=== PATIENT | female | born 2000 | race Caucasian/White ===

== ENCOUNTER 2022-08-19 14:51 | Emergency (ER) | payer OTHER, SELFPAY ==
--- NOTE | ~2022-08-19 | US_ITS ---
EXAMINATION: US PELVIS COMPLETE CLINICAL INFORMATION: Right lower quadrant pain COMPARISON: CT abdomen pelvis 08/19/2022 TECHNIQUE: Transabdominal and transvaginal imaging was performed. Color and spectral Doppler was also obtained. FINDINGS: The uterus is of normal size and echogenicity measuring 6.7 x 3.2 x 3.9 cm. A regular homogeneous endometrium is identified measuring 0.7 cm. No uterine mass. Ovarian cyst present in the cervix. Both ovaries are of normal echogenicity with vascular flow present. The right measures 4.9 x 2.3 x 2.4 cm for a volume of 14.2 mL. The left measures 4.5 x 1.9 x 2.6 cm for a volume of 11.1 mL. Multiple physiologic follicles are noted. There is no pelvic free fluid. US/US pelvic and transvaginal IMPRESSION: No acute findings to explain symptoms of pelvic pain. Ovaries are symmetrically mildly enlarged with multiple follicles, which could be seen in the setting of polycystic ovarian syndrome if clinical history is appropriate.
--- NOTE | ~2022-08-19 | XR_ITS ---
EXAMINATION: XR CHEST CLINICAL INFORMATION: Chest pain COMPARISON: None TECHNIQUE: Frontal view of the chest was obtained. FINDINGS: No significant abnormality is noted involving the heart, lungs, mediastinum, bony thorax or soft tissues. XR/XR chest 1V IMPRESSION: Unremarkable examination.
--- NOTE | ~2022-08-19 | CT_ITS ---
EXAMINATION: CT ABDOMEN AND PELVIS WITH CONTRAST CLINICAL INFORMATION: Flank pain COMPARISON: None TECHNIQUE: Multidetector volumetric images were obtained from the superior aspect of the liver through the pubic symphysis following administration 85 mL of Omnipaque 350 intravenous contrast. Sagittal and coronal reformatted images were obtained on the technologist's workstation. Oral contrast: No This CT examination was performed using dose optimization techniques as appropriate, variously including the following: *Automated exposure control *Adjustment of mA and/or kV according to patient size (this includes techniques or standardized protocols for targeted exams where dose is matched to indication/reason for exam; i.e. extremities or head) *Use of iterative reconstruction technique DLP: 565 mGy-cm FINDINGS: LUNG BASES: The visualized lung bases are unremarkable. LIVER, GALLBLADDER, AND BILIARY TREE: The liver is normal in size, shape, and attenuation. No focal hepatic lesion or biliary ductal dilatation is present. The gallbladder is unremarkable with no evidence of radiopaque gallstones, gallbladder wall thickening, or obvious pericholecystic inflammatory changes. PANCREAS: Unremarkable. SPLEEN: Unremarkable. ADRENAL GLANDS: Unremarkable. KIDNEYS AND URETERS: The kidneys are normal in size, shape, and attenuation. No hydronephrosis, hydroureter, or calculi seen. No perinephric stranding. BLADDER: Unremarkable. GASTROINTESTINAL TRACT: The small and large bowel are unremarkable. No inflammatory changes. ABDOMINAL WALL: No significant hernia is appreciated. LYMPH NODES: Reactive appearing lymph nodes within the mesentery. VASCULAR: Unremarkable. PELVIC VISCERA: Unremarkable. OSSEOUS STRUCTURES: Unremarkable. CT/CT abdomen pelvis w IV con IMPRESSION: No stones or obstructive uropathy. Changes of mild nonspecific lymphadenitis within the mesentery. Fleischner guidelines were followed.
--- NOTE | ~2022-08-19 | US_ITS ---
EXAMINATION: US PELVIS COMPLETE CLINICAL INFORMATION: Right lower quadrant pain COMPARISON: CT abdomen pelvis 08/19/2022 TECHNIQUE: Transabdominal and transvaginal imaging was performed. Color and spectral Doppler was also obtained. FINDINGS: The uterus is of normal size and echogenicity measuring 6.7 x 3.2 x 3.9 cm. A regular homogeneous endometrium is identified measuring 0.7 cm. No uterine mass. Ovarian cyst present in the cervix. Both ovaries are of normal echogenicity with vascular flow present. The right measures 4.9 x 2.3 x 2.4 cm for a volume of 14.2 mL. The left measures 4.5 x 1.9 x 2.6 cm for a volume of 11.1 mL. Multiple physiologic follicles are noted. There is no pelvic free fluid. US/US pelvic ovarian doppler IMPRESSION: No acute findings to explain symptoms of pelvic pain. Ovaries are symmetrically mildly enlarged with multiple follicles, which could be seen in the setting of polycystic ovarian syndrome if clinical history is appropriate.
[2022-08-19 16:18] VITALS: BP 133/77; PULSE 56; RESP 16; TEMP 36.8; O2SAT 98; BMI 30.9
[2022-08-19 16:53] LABS: MANUAL DIFF FLAG NO
[2022-08-19 17:01] LABS: Appearance Urine Clear; Basophils Absolute Auto 0.1 X10*3/uL (0.0-0.2); Basophils Percent Auto 0.7 % (0-2); Color Urine Yellow; Eosinophils Absolute Auto 0.5 X10*3/uL (0.0-0.4); Eosinophils Percent Auto 3.8 % (0-4); Glucose Urine UA Negative (Negative); Hematocrit 42.2 % (37.0-47.0); Hemoglobin 13.6 g/dl (12.0-16.0); Imm Gran Abs Auto 0.07 X10*3/uL (0.00-0.03); Imm Gran Pct Auto 0.6 % (0.0-0.4); Leukocyte Esterase Urine Negative (Negative); Lymphocytes Percent Auto 31.5 % (20-40); Mean Corpuscular HGB Conc 32.2 g/dl (31.0-35.0); Mean Corpuscular Hemoglobin 27.6 pg (27.0-33.0); Mean Corpuscular Volume 85.8 fL (80.0-98.0); Mean Platelet Volume 9.8 fL (9.4-12.3); Monocytes Absolute Auto 0.9 X10*3/uL (0.1-1.2); Monocytes Percent Auto 6.8 % (2-11); Neutrophils Absolute Auto 7.2 x10*3/uL (2.0-8.3); Neutrophils Percent Auto 56.6 % (45-73); Nitrite Urine Negative (Negative); Platelet Count 370 X10*3/uL (160-400); Red Blood Count 4.92 X10*6/uL (4.20-5.50); Red Cell Distribution Width 13.4 % (11.0-16.0); Specific Gravity - Urine 1.025 (1.005-1.025); Urine Blood Negative (Negative); Urine Ketones Trace mg/dL (Negative); Urine Protein Negative (Neg-Trace); White Blood Count 12.7 X10*3/uL (4.8-10.8)
[2022-08-19 17:10] LABS: Alanine Aminotransferase 26 U/L (0-31); Albumin Level 4.6 g/dL (3.5-5.0); Anion Gap 16 (12-20); Aspartate Amino Transferase 21 U/L (5-31); Bilirubin Total 0.3 mg/dL (0.0-1.0); Blood Urea Nitrogen 11 mg/dL (9-16); Calcium 9.8 mg/dL (8.4-10.2); Carbon Dioxide 24 mmol/L (22-29); Chloride 105 mmol/L (96-108); Creatinine Clr Calc Pharmacy 117.7; Estimated Glomerular Filt Rate > 60; Glucose Random 83 mg/dL (60-115); Potassium 4.2 mmol/L (3.3-5.1); Sodium 141 mmol/L (135-145); Total Protein 7.8 g/dL (6.5-8.0)
[2022-08-19 17:11] LABS: Alkaline Phosphatase 110 U/L (39-117)
[2022-08-19 20:21] VITALS: BP 147/86; PULSE 65; RESP 18; TEMP 36.8; O2SAT 97
[2022-08-19 21:02] LABS: HCG Quantitative < 2 mIU/mL
--- NOTE | 2022-08-19 21:07 | ED_ITS ---
HPI - Female Genitourinary General Chief complaint: Urogenital-Female Stated complaint: lower abd/lower back pain Time Seen by Provider: 08/19/22 20:25 Source: patient Mode of arrival: ambulatory Limitations: no limitations History of Present Illness HPI Narrative: 22-year-old female with history of asthma presents to the emergency department with diffuse lower abdominal pain radiating to her back x 2 weeks. Patient reports the pain is constant however it is worse when she is lying on her right side. Patient was diagnosed and treated for a yeast infection & UTI 2 weeks ago. Was + for chlamydia in May. Reports no concerns for STD/STIS now no vaginal bleeding or discharge recieve full tx and it resolved. Patient continues to report frequent urination, denies odor and reprots cloudy urine. Patient reports intermittent pleuritic chest pain however contributes this to her asthma. Patient reports headaches ( feels like her typical, no vision changes, dizziness, head trauma) and reports that about a week ago she felt nauseous. Patient denies altered mental status, dizziness, vomiting, hematauria, shortness of breath, weakness, vaginal bleeding, vaginal discharge. Related Data Previous Rx's Medication Instructions Recorded cyclobenzaprine 10 mg tablet 10 mg PO BEDTIME PRN muscle spasm 08/19/22 #7 tabs docusate sodium 100 mg capsule 100 mg PO BID #20 caps 08/19/22 (Colace) polyethylene glycol 3350 17 17 g PO BID PRN constipation #238 08/19/22 gram/dose oral powder (Miralax) grams prednisone 20 mg tablet 20 mg PO DAILY 5 days #5 tabs 08/19/22 sennosides 8.6 mg tablet (senna) 8.6 mg PO BEDTIME #14 tabs 08/19/22 Allergies Allergy/AdvReac Type Severity Reaction Status Date / Time No Known Allergies Allergy Verified 08/19/22 16:18 Review of Systems Review of Systems: Constitutional : No Weight loss, No Fever, No Chills, + Fatigue, + Malaise ENT/Mouth : No sore throat, No Rhinorrhea Eyes: No Eye Pain, No Swelling, No Redness Cardiovascular : + Chest Pain, No SOB, No Dyspnea on Exertion, No Orthopnea, No Edema, No Palpitations Respiratory : No Cough, No Sputum, No Wheezing Gastrointestinal : No Nausea, No Vomiting, No Diarrhea, No Constipation, + abdominal Pain, No Hematochezia, No Melena Genitourinary : No Dysuria, No Urinary Frequency, No Hematuria, Musculoskeletal : No joint pain, No Myalgias, No Joint Swelling Skin : No Skin Lesions, No rash Neuro : No Weakness, No Numbness, No Dizziness, No Headache Psych : No Anxiety/Panic, No Depression All other systems reviewed and are negative Yes all other systems are reviewed and are negative [facility] Past Medical History Attestation statement: The following information was validated with the patient. Source: old records reviewed and nursing notes reviewed Social History Social History Advance Directives: No Advance Directives Information Provided: No Physical Exam Vital Signs: Vital Signs: Last Vital Signs Temp 98.3 F 08/19/22 20:21 Pulse 65 08/19/22 20:21 Resp 18 08/19/22 20:21 BP 147/86 H 08/19/22 20:21 Pulse Ox 97 08/19/22 20:21 O2 Del Method 08/19/22 20:21 BMI result Body Mass Index 30.9 vss Appearance: Alert.? Oriented X3.? No acute distress.? Head: Normocephalic, atraumatic, no step-offs or deformities Eyes: Pupils equal, round and reactive to light.? ENT: Pharynx normal.? Neck: Normal inspection.? Neck supple.? CVS: Normal heart rate and rhythm.? Pulses normal.? Respiratory: No respiratory distress.? Breath sounds normal.? Abdomen: Soft and diffuse abd pain worse in RLQ w/ some rebound tenderness.? Skin: Skin warm and dry.? Normal skin color.? Normal skin turgor.? Extremities: No lower extremity edema.? No calf ttp. 5/5 strength to bilateral upper and lower extremities Back: No CVA tenderness bilaterally Neuro: Oriented X 3.? No motor deficit.? No sensory deficit. CN 2-12 intact Course Reevaluation(s) Reevaluation #1: Patient with slight leukocytosis, chemistry with no acute electrolyte abnormalities requiring intervention, troponin negative, EKG nonischemic, beta hCG negative. Urine clean. D-dimer negative. CT of the abdomen pelvis with no stones or obstructing uropathy. Lymph adenitis within the mesentery noted. Chest x-ray unremarkable. Pelvic ultrasound with no signs of torsion. There are mildly enlarged bilateral ovaries, could represent polycystic ovarian syndrome, patient was educated on this, advised follow-up with her PCP. Again I do not suspect ACS, PE on this patient. No signs of intra-abdominal pathologies. Upon re-evaluation of patient patient able to keep down p.o., patient is not tender on my exam, she appears comfortable, on her phone, playing. She does tell that recently she has been more constipated than usual, has not tried [id number] medication for this. I will discharge her home on a bowel regimen. Advised to follow-up with GI, OBGYN in her PCP. I educated her on worrisome signs and symptoms and when to return. At this time I feel comfortable discharge home. Time: 23:34 MDM - Female Genitourinary MDM Narrative Medical decision making narrative: 2034 22 year old female presents w/ lower abd that radiates to back,, headache, malise, fatigue and pleuritic chest pain x2 weeks. Physical examination with diffuse abdominal tenderness, worse in the right lower quadrant with some rebound tenderness. Concerns for possible appendicitis, kidney stones, UTI. Unlikely pyelonep hritis. Unlikely PE, ACS. Unlikley stroke, posterior stroke. Unlikely PID no pain with intercourse or concerns for STDs Plan at this time is to obtain basic labs, imaging, hCG, D-dimer, CT of the ab domen and pelvis. Medical Records Attestation: I reviewed the patient's medical records. Lab Data Attestation: I reviewed the patient's lab results. Result diagrams: 08/19/22 16:38 08/19/22 16:38 Labs: Lab Results 08/19/22 08/19/22 08/19/22 Range/Units 16:38 16:38 16:38 WBC 12.7 H (4.8-10.8) X10*3/uL RBC 4.92 (4.20-5.50) X10*6/uL Hgb 13.6 (12.0-16.0) g/dl Hct 42.2 (37.0-47.0) % MCV 85.8 (80.0-98.0) fL MCH 27.6 (27.0-33.0) pg MCHC 32.2 (31.0-35.0) g/dl RDW 13.4 (11.0-16.0) % Plt Count 370 (160-400) X10*3/uL MPV 9.8 (9.4-12.3) fL Immature Gran % (Auto) 0.6 H (0.0-0.4) % Neut % (Auto) 56.6 (45-73) % Lymph % (Auto) 31.5 (20-40) % Mccracken % (Auto) 6.8 (2-11) % Eos % (Auto) 3.8 (0-4) % Baso % (Auto) 0.7 (0-2) % Lymph # (Auto) 4.0 (1.2-4.9) X10*3/uL Mccracken # (Auto) 0.9 (0.1-1.2) X10*3/uL Eos # (Auto) 0.5 H (0.0-0.4) X10*3/uL Baso # (Auto) 0.1 (0.0-0.2) X10*3/uL Abs Immat Gran (auto) 0.07 H (0.00-0.03) X10*3/uL Absolute Neuts (auto) 7.2 (2.0-8.3) x10*3/uL Absolute Nucleated RBC 0.000 (0.0-0.012) X10*3/uL Nucleated RBC % (auto) 0.0 (0.0-0.2) /100WBC D-Dimer High Sensitivty NG/ML Sodium 141 (135-145) mmol/L Potassium 4.2 (3.3-5.1) mmol/L Chloride 105 (96-108) mmol/L Carbon Dioxide 24 (22-29) mmol/L Anion Gap 16 (12-20) BUN 11 (9-16) mg/dL Creatinine 0.76 (0.5-1.4) mg/dL Estim Creat Clear Calc 117.7 Estimated GFR > 60 Random Glucose 83 (60-115) mg/dL Calcium 9.8 (8.4-10.2) mg/dL Total Bilirubin 0.3 (0.0-1.0) mg/dL AST 21 (5-31) U/L ALT 26 (0-31) U/L Alkaline Phosphatase 110 (39-117) U/L Troponin I High Sens (<3.5-17.0) ng/L Total Protein 7.8 (6.5-8.0) g/dL Albumin 4.6 (3.5-5.0) g/dL Lipase 33 (8-78) U/L Beta HCG, Quant < 2 mIU/mL Urine Color Yellow Urine Appearance Clear Urine pH 6.0 (5.0-9.0) Ur Specific Nelson 1.025 (1.005-1.025) Urine Protein Negative (Neg-Trace) mg/dL Urine Glucose (UA) Negative (Negative) mg/dL Urine Ketones Trace (Negative) mg/dL Urine Blood Negative (Negative) Urine Nitrite Negative (Negative) Ur Leukocyte Esterase Negative (Negative) 08/19/22 08/19/22 Range/Units 16:38 22:58 WBC (4.8-10.8) X10*3/uL RBC (4.20-5.50) X10*6/uL Hgb (12.0-16.0) g/dl Hct (37.0-47.0) % MCV (80.0-98.0) fL MCH (27.0-33.0) pg MCHC (31.0-35.0) g/dl RDW (11.0-16.0) % Plt Count (160-400) X10*3/uL MPV (9.4-12.3) fL Immature Gran % (Auto) (0.0-0.4) % Neut % (Auto) (45-73) % Lymph % (Auto) (20-40) % Mccracken % (Auto) (2-11) % Eos % (Auto) (0-4) % Baso % (Auto) (0-2) % Lymph # (Auto) (1.2-4.9) X10*3/uL Mccracken # (Auto) (0.1-1.2) X10*3/uL Eos # (Auto) (0.0-0.4) X10*3/uL Baso # (Auto) (0.0-0.2) X10*3/uL Abs Immat Gran (auto) (0.00-0.03) X10*3/uL Absolute Neuts (auto) (2.0-8.3) x10*3/uL Absolute Nucleated RBC (0.0-0.012) X10*3/uL Nucleated RBC % (auto) (0.0-0.2) /100WBC D-Dimer High Sensitivty < 150 NG/ML Sodium (135-145) mmol/L Potassium (3.3-5.1) mmol/L Chloride (96-108) mmol/L Carbon Dioxide (22-29) mmol/L Anion Gap (12-20) BUN (9-16) mg/dL Creatinine (0.5-1.4) mg/dL Estim Creat Clear Calc Estimated GFR Random Glucose (60-115) mg/dL Calcium (8.4-10.2) mg/dL Total Bilirubin (0.0-1.0) mg/dL AST (5-31) U/L ALT (0-31) U/L Alkaline Phosphatase (39-117) U/L Troponin I High Sens < 3.5 (<3.5-17.0) ng/L Total Protein (6.5-8.0) g/dL Albumin (3.5-5.0) g/dL Lipase (8-78) U/L Beta HCG, Quant mIU/mL Urine Color Urine Appearance Urine pH (5.0-9.0) Ur Specific Nelson (1.005-1.025) Urine Protein (Neg-Trace) mg/dL Urine Glucose (UA) (Negative) mg/dL Urine Ketones (Negative) mg/dL Urine Blood (Negative) Urine Nitrite (Negative) Ur Leukocyte Esterase (Negative) ECG Data Attestation: I personally reviewed and interpreted this ECG as follows: ECG interpretation date: 08/19/22 ECG interpretation time: 23:51 Prior ECG tracings: not available for review Interpretation: Ventricular rate of 72, SC normal, QRS normal, QT/QTC normal. EKG with sinus rhythm with marked arrhythmia, no ST elevations or inversions concerning for is chemia. No previous to compare with. Critical Care Time Critical Care Time Critical Care Time: No Discharge Plan Discharge Clinical Impression: Abdominal pain, Pleuritic chest pain, Constipation Patient Disposition: Home, Self-Care Instructions: Chest Pain (ED), Abdominal Pain (ED) Additional Instructions: Take your medications as prescribed. If you were prescribed antibiotics today, it is important that you take your medication to their entirety, do not skip any doses, do not finish them early. Follow-up with your primary care provider this week. Please follow-up with OBGYN and GI of needed. Return to the emergency department with new or worsening symptoms. Such as fevers, chills, chest pain, shortness of breath, nausea, vomiting, dizziness, headache, vision changes, lethargy, vaginal bleeding, vaginal discharge In case of emergency call 911 US/US pelvic and transvaginal IMPRESSION: ? No acute findings to explain symptoms of pelvic pain. Ovaries are symmetrically mildly enlarged with multiple follicles, which could be seen in the setting of polycystic ovarian syndrome if clinical history is appropriate. XR/XR chest 1V IMPRESSION: Unremarkable examination. ? CT/CT abdomen pelvis w IV con IMPRESSION: No stones or obstructive uropathy. Changes of mild nonspecific lymphadenitis within the mesentery.? ? Fleischner guidelines were followed. Prescriptions: New cyclobenzaprine 10 mg tablet 10 mg PO BEDTIME PRN (Reason: muscle spasm) Qty: 7 0RF sennosides [senna] 8.6 mg tablet 8.6 mg PO BEDTIME Qty: 14 0RF prednisone 20 mg tablet 20 mg PO DAILY 5 Days Qty: 5 0RF docusate sodium [Colace] 100 mg capsule 100 mg PO BID Qty: 20 0RF polyethylene glycol 3350 [Miralax] 17 gram/dose powder 17 g PO BID PRN (Reason: constipation) Qty: 238 0RF Referrals: [facility] – [place] [facility] [Provider Group] - 1 week Physician,None [Primary Care Provider] - 2 days Stand Alone Forms: Work/School Release
[2022-08-19] MEDS: iohexoL 350 MG/ML 100 ML INFUS..BTL IV (21:16)
--- NOTE | 2022-08-19 22:13 | ECG_ITS ---
Test Reason : PAIN Blood Pressure : / mmHG Vent. Rate : 072 BPM Atrial Rate : 072 BPM P-R Int : 144 ms QRS Dur : 080 ms QT Int : 396 ms P-R-T Axes : 025 053 037 degrees QTc Int : 433 ms Sinus rhythm with marked sinus arrhythmia Otherwise normal ECG No previous ECGs available Referred By: Magnus Patton Electronically Signed By:DANIEL GARCIA MD
[2022-08-19 22:51] LABS: Troponin-I High Sensitivity < 3.5 ng/L (<3.5-17.0)
--- NOTE | 2022-08-19 23:05 | PC.NURSE ---
report given to ALFRED Cordero- pt aware
[2022-08-19 23:12] LABS: D Dimer High Sensitivity < 150 NG/ML
[2022-08-19 23:34] LABS: Lipase 33 U/L (8-78)
[2022-08-20] MEDS: Ketorolac Tromethamine 15 MG/ML VIAL IVPUSH
== END 2022-08-20 00:06 | disposition home or self-care (01) ==
PROVIDERS: Physician Assistant; Emergency Provider Emergency Medicine Emergency Medical Services
DX: R07.89 Other chest pain (principal); M54.50 Low back pain, unspecified; K59.00 Constipation, unspecified; R10.2 Pelvic and perineal pain; R10.9 Unspecified abdominal pain; R10.32 Left lower quadrant pain; Z79.899 Other long term (current) drug therapy
CPT/HCPCS: 36415; 71045; 74177; 76830; 76856; 80053; 81003; 83690; 84484; 84702; 85025; 85379; 93005; 93975; 96374; 99284; J1885; Q9967

== ENCOUNTER 2023-01-20 10:24 | Emergency (ER) | payer OTHER, SELFPAY ==
[2023-01-20 10:26] VITALS: BP 144/93; PULSE 109; RESP 24; TEMP 36.6; O2SAT 96; BMI 31.0
--- NOTE | 2023-01-20 10:35 | ED_ITS ---
HPI - Asthma General Chief Complaint: Asthma Stated Complaint: low oxygen, cough, vomting Time Seen by Provider: 01/20/23 10:35 Source: patient Mode of arrival: ambulatory Limitations: no limitations History of Present Illness HPI Narrative: Patient with persistent coughing for 3 days. Took dayquil and nyquil with no improvment. Patient with rhinorrhea and sore throat complaint: other (coughinh) Onset (ago): day(s) Related Data Previous Rx's Medication Instructions Recorded cyclobenzaprine 10 mg tablet 10 mg PO BEDTIME PRN muscle spasm 08/19/22 #7 tabs docusate sodium 100 mg capsule 100 mg PO BID #20 caps 08/19/22 (Colace) polyethylene glycol 3350 17 17 g PO BID PRN constipation #238 08/19/22 gram/dose oral powder (Miralax) grams prednisone 20 mg tablet 20 mg PO DAILY 5 days #5 tabs 08/19/22 sennosides 8.6 mg tablet (senna) 8.6 mg PO BEDTIME #14 tabs 08/19/22 prednisone 20 mg tablet 60 mg PO DAILY #12 tabs 01/20/23 Allergies Allergy/AdvReac Type Severity Reaction Status Date / Time No Known Allergies Allergy Verified 08/19/22 16:18 [facility] Social History Social History Smoked in Last 30 Days: Yes Advance Directives: No Advance Directives Information Provided: Yes Physical Exam Vital Signs: Vital Signs: Last Vital Signs Temp 98 F 01/20/23 10:26 Pulse 123 H 01/20/23 14:38 Resp 20 01/20/23 14:38 BP 144/93 H 01/20/23 10:26 Pulse Ox 93 01/20/23 11:31 O2 Del Method 01/20/23 11:31 BMI result Body Mass Index 31.0 Course Reevaluation(s) Reevaluation #1: still wheezing but moving better air Time: 14:25 Reevaluation #2: Breathing better will dc home Time: 15:34 Medications Administered Discontinued Medications Generic Name Dose Route Start Last Admin Trade Name Freq PRN Reason Stop Dose Admin Albuterol Sulfate 10 mg 01/20/23 11:35 01/20/23 11:38 Albuterol Sulfate (0.083%) 2.5 Mg/3 Ml Vial.Neb INHALE 01/20/23 11:36 10 mg ONCE ONE Administration Albuterol Sulfate 7.5 mg 01/20/23 14:25 01/20/23 14:36 Albuterol Sulfate (0.083%) 2.5 Mg/3 Ml Vial.Neb INHALE 01/20/23 14:26 7.5 mg ONCE ONE Administration Albuterol Sulfate 7.5 mg/ 0 mg 01/20/23 10:37 01/20/23 10:51 Ipratropium [place] 0.5 mg INHALE 01/20/23 10:38 7.5 each ONCE ONE Administration Methylprednisolone Sodium Succinate 125 mg 01/20/23 10:37 01/20/23 10:50 Methylprednisolone Sod Succ 125 Mg/2 Ml Vial IVPUSH 01/20/23 10:38 125 mg ONCE ONE Administration Medical Decision Making Differential Diagnosis Differential Diagnoses: The differential diagnosis associated with the presentation includes (Asthma exacerbation, covid, influenza, RSV) Admission/Observation Consideration of admission/observation: Escalation of care including admission/observation considered (Young person with borderline hypoxia and tight wheezing, admission was considered) Consult Healthcare Provider Management of the patient was discussed with: Primary Care Provider Lab Data Labs: Lab Results 01/20/23 Range/Units 10:49 Influenza Type A (PCR) NEGATIVE (Negative) Influenza Type B (PCR) NEGATIVE (Negative) RSV RNA Qual (PCR) NEGATIVE (Negative) SARS-CoV-2 RNA (RT-PCR) NEGATIVE (Negative) Tests considered The following testing was considered but not selected: Chest xray was considered but not performed secondary to being afebrile with diffuse wheezing Discharge Plan Discharge Clinical Impression: Asthma with acute exacerbation Patient Disposition: Home, Self-Care Instructions: Asthma (ED) Prescriptions: New prednisone 20 mg tablet 60 mg PO DAILY Qty: 12 0RF No Action cyclobenzaprine 10 mg tablet 10 mg PO BEDTIME PRN (Reason: muscle spasm) Qty: 7 0RF sennosides [senna] 8.6 mg tablet 8.6 mg PO BEDTIME Qty: 14 0RF prednisone 20 mg tablet 20 mg PO DAILY 5 Days Qty: 5 0RF docusate sodium [Colace] 100 mg capsule 100 mg PO BID Qty: 20 0RF polyethylene glycol 3350 [Miralax] 17 gram/dose powder 17 g PO BID PRN (Reason: constipation) Qty: 238 0RF Referrals: Physician,Unknown J [Primary Care Provider] - 5 days
--- NOTE | 2023-01-20 10:42 | PC.NURSE ---
Patient with history of asthma is a smoker wheezing noted with dry non productive cough. Patient did use rescue inhaler at home with little effect will CTM
[2023-01-20] MEDS: methylPREDNISolone Sod Succ 125 MG/2 ML VIAL IVPUSH (10:50)
--- NOTE | 2023-01-20 10:54 | PC.NURSE ---
IV access obtained solumedrol admin patient complaint of pain no indices of infiltration respiratory at bedside will CTM
[2023-01-20 10:57] VITALS: PULSE 111; RESP 24; O2SAT 92
--- NOTE | 2023-01-20 11:30 | PC.NURSE ---
Notified MD patient continues to have slight wheezing no cough and sounds tight.
[2023-01-20 11:31] VITALS: PULSE 130; RESP 22; O2SAT 93
[2023-01-20] MEDS: Albuterol Sulfate (0.083%) 2.5 MG/3 ML VIAL.NEB 10 MG INHALE (11:38)
[2023-01-20 11:39] VITALS: PULSE 126; RESP 22; O2SAT 93
[2023-01-20 11:56] LABS: Influenza A PCR NEGATIVE (Negative); Influenza B PCR NEGATIVE (Negative); Resp Syncy Virus RNA Qual PCR NEGATIVE (Negative); SARS COV2 PCR INHOUSE NEGATIVE (Negative)
--- NOTE | 2023-01-20 12:05 | PC.NURSE ---
Patient tolerating second breathing treatment no adverse effect noted will CTM
--- NOTE | 2023-01-20 12:25 | PC.NURSE ---
Patient LS improved patient reports improvement saturation good on room air.
[2023-01-20] MEDS: Albuterol Sulfate (0.083%) 2.5 MG/3 ML VIAL.NEB 7.5 MG INHALE (14:36)
[2023-01-20 14:38] VITALS: PULSE 123; RESP 20; O2SAT 94
[2023-01-20 15:44] VITALS: BP 124/72; PULSE 141; RESP 20; O2SAT 92
== END 2023-01-20 16:28 | disposition home or self-care (01) ==
PROVIDERS: Emergency Provider Emergency Medicine
DX: J45.909 Unspecified asthma, uncomplicated (principal); R05.9 Cough, unspecified; Z20.822 Contact with and (suspected) exposure to COVID-19; Z20.828 Contact with and (suspected) exposure to other viral communicable diseases; Z79.899 Other long term (current) drug therapy
CPT/HCPCS: 0241U; 94640; 96374; 99284; J2930